=== PATIENT | female | born 1945 | race Caucasian/White ===

== ENCOUNTER 2023-05-25 14:32 | Emergency (ER) | payer MEDICARE ==
[2023-05-25 14:46] VITALS: TEMP 97
[2023-05-25] MEDS ORDERED: APRESOLINE 20 MG/ML INJ IV ONE (15:23)
[2023-05-25] MEDS ORDERED: APRESOLINE 20 MG/ML INJ ONE (15:31)
[2023-05-25 15:36] VITALS: RESP 16
[2023-05-25 15:47] LABS: Absolute Neutrophil Ct (ANC) 4.59 x10^3/uL (1.4-6.9); BASOPHIL % 0.6 % (0.0-0.4); Basophil (Absolute #) 0.04 x10^3/uL (0-0.4); Eosinophil % 0.2 % (0.00-5.0); Eosinophil (Absolute #) 0.01 x10^3/uL (0-0.5); Hematocrit 38.5 % (35-47); Hemoglobin 12.8 g/dL (12.0-16.0); IMMATURE GRAN # 0.02 x10^3u/L (0.00-0.03); IMMATURE GRAN % 0.3 % (0.00-0.4); Lymphocyte (Absolute #) 1.33 x10^3/uL (1.0-4.6); Lymphocytes % 20.1 % (24.0-44.0); Mean Cell Volume 90.6 fL (78-100); Mean Corpuscular Hemoglobin 30.1 pg (26-32); Mean Corpuscular Hgb Concent. 33.2 g/dL (32-36); Mean Platelet Volume 10.1 fL (7.5-11.0); Monocyte (Absolute #) 0.62 x10^3/uL (0.0-1.3); Monocytes % 9.4 % (0.0-12.0); Neutrophil % 69.4 % (36.0-66.0); Platelet Count 216 x10^3/uL (150-450); Red Blood Count 4.25 x10^6/uL (4.1-5.4); Red Cell Distribution Width 12.8 % (11.5-14.0); White Blood Count 6.6 x10^3/uL (4.0-10.5)
[2023-05-25 15:55] LABS: Appearance Clear (Clear); Bacteria None Seen /HPF (None Seen); Bilirubin Negative (Negative); Blood Negative (Negative); Epithelial Cells None Seen /HPF (None Seen); Glucose, Urine Negative (Negative); Hyaline Casts NONE SEEN /LPF (0-2); Ketones Negative (Negative); Leukocyte Esterase Trace (Negative); Nitrite Negative (Negative); Ph 7.5 (4.6-8.0); Protein,Urine Dip Negative (Negative); RBC 0-2 /HPF (0-5); Urobilinogen 0.2 mg/dL (0.2); WBC 0-2 /HPF (0-5)
[2023-05-25 15:59] LABS: ADD URINE CULTURE? NO (NO)
[2023-05-25 16:11] LABS: ALBUMIN 3.7 g/dL (3.5-5.0); ANION GAP 10.5 MEQ/L (5-15); BILIRUBIN,TOTAL 0.4 mg/dL (0.2-1.3); Calcium 9.1 mg/dL (8.4-10.2); Creatinine 1 0.79 mg/dL (0.52-1.04); EST GLOMERULAR FILTRATION RATE 76.5 ML/MIN; Potassium 3.8 mmol/L (3.5-5.1); Total Protein 6.7 g/dL (6.3-8.2)
[2023-05-25 17:09] VITALS: O2SAT 98
[2023-05-25] MEDS ORDERED: ZOFRAN ODT 4 MG PO ONE (17:26)
--- NOTE | 2023-05-25 17:26 | ERPHSYRPT ---
- History of Present Illness Time Seen by Provider: 05/25/23 14:45 Source: patient Exam Limitations: no limitations Patient Subjective Stated Complaint: PT HERE FOR HYPERTENSION, SHE STATES SHE WENT TO SEE HER DR THIS WEEK AND HER B/P WAS HIGH AND SHE WAS TOLD TO INCREASE HER COREG. SHE STATES SHE IS NOW DIZZY. Triage Nursing Assessment: PT ALERT, WALKED IN, RESP EASY , SKIN W/D/P, ABD SOFT, NO EDEMA NOTED, Physician History: 78 years old female with history of hypertension, hypothyroidism presented in the ER with chief complaint of feeling dizzy and lightheaded since 11 AM today. Patient reports her blood pressure was staying in 150s and 160s last week when she had to doctor's appointment. She talked to her carpenter Dr. Ortega who recommended increasing dose of Coreg from 6.25-12.5. She took around 9 AM and after 2 hours she started to feel lightheaded. She denies any chest pain palpitations or shortness of breath. Denies blurry vision, numbness tingling or focal weakness. Patient reports she checked her blood pressure it was in 180s and 170s. Patient is very anxious. Over here blood pressure is in 190s. EKG showed sinus bradycardia with no acute ischemic changes. I have obtained chest x-ray which is negative for any acute cardiopulmonary findings. I have given her 10 of hydralazine and blood pressure improved in 160s. Her dizziness and lightheadedness is improved. Patient is able to ambulate in the ER without any limitations. Work-up showed normal white count, fairly unremarkable chemistries and negative troponins. Patient I believe is probably feeling lightheaded secondary to possible bradycardia. Her bradycardia is also improved and currently heart rate in the 70s. I do not think patient needs CT head and is more of a heart related/blood pressure related dizziness. Recommended continue with the same dose of Coreg 6.25 and may increase the dose of losartan from 50 to either 100 are 75 mg daily and will also give a prescription of clonidine 0.1 mg to take as needed if blood pressure is greater than 160s. Recommended follow-up with primary care/cardiology for reevaluation and 1 to 2 days and follow their instructions. Discussed signs symptoms of worsening needing return to ER which she seems understanding. Stable for discharge. Allergies/Adverse Reactions: No Known Drug Allergies Allergy (Unverified 05/25/23 14:43) Home Medications: Atorvastatin Calcium [Lipitor 20MG Tablet] 20 mg PO DAILY 05/25/23 [History] Carvedilol [Coreg ] 6.25 mg PO BID 05/25/23 [History] Levothyroxine Sodium 75 Mcg [Synthroid 75 Mcg] 75 mcg PO DAILY 05/25/23 [History] Losartan Potassium 50 mg [Cozaar 50 MG] 50 mg PO DAILY 05/25/23 [History] Omeprazole 20 mg PO DAILY 05/25/23 [History] Hx Tetanus, Diphtheria Vaccination/Date Given: No Hx Influenza Vaccination/Date Given: No Hx Pneumococcal Vaccination/Date Given: No Immunizations Up to Date: Yes Travel Risk - International Travel Have you traveled outside of the country in past 3 weeks: No - Coronavirus Screening Are you exhibiting any of the following symptoms?: No Close contact with a COVID-19 positive Pt in past 14-21 Days: No - Vaccine Status Have you recieved a Covid-19 vaccination: No - Review of Systems Constitutional: No Symptoms Eyes: No Symptoms Ears, Nose, & Throat: No Symptoms Respiratory: No Symptoms Cardiac: No Symptoms Abdominal/Gastrointestinal: Nausea Genitourinary Symptoms: No Symptoms Musculoskeletal: No Symptoms Skin: No Symptoms Neurological: Dizziness, No Headache Endocrine: No Symptoms Hematologic/Lymphatic: No Symptoms Immunological/Allergic: No Symptoms - Past Medical History Pertinent Past Medical History: Yes Cardiac History: High Cholesterol, Hypertension GI Medical History: Hernia - Past Surgical History Past Surgical History: Yes Gastrointestinal: Appendectomy, Cholecystectomy Female Surgical History: Tubal Ligation - Social History Smoking Status: Never smoker Exposure to second hand smoke: No Drug Use: none Patient Lives Alone: No - Nursing Vital Signs Nursing Vital Signs: Initial Vital Signs Temperature 97.0 F 05/25/23 14:46 Pulse Rate 59 L 05/25/23 14:46 Respiratory Rate 18 05/25/23 14:46 Blood Pressure 217/87 05/25/23 14:46 O2 Sat by Pulse Oximetry 98 05/25/23 14:46 Pain Scale Pain Intensity 0 - Physical Exam General Appearance: no apparent distress, alert, anxiety Eye Exam: PERRL/EOMI Ears, Nose, Throat Exam: normal ENT inspection, TMs normal, pharynx normal, moist mucous membranes Neck Exam: normal inspection, non-tender, supple, full range of motion Respiratory Exam: normal breath sounds, lungs clear Cardiovascular Exam: normal heart sounds, bradycardia Gastrointestinal/Abdomen Exam: soft, normal bowel sounds, No tenderness Back Exam: normal inspection, normal range of motion Extremity Exam: normal inspection, normal range of motion, pelvis stable Neurologic Exam: alert, oriented x 3, cooperative, central aisle cashier II-XII nml as tested, nml cerebellar function, nml station & gait, sensation nml, No normal mood/affect (Anxious) Skin Exam: normal color SpO2 Interpretation: normal SpO2: 98 O2 Delivery: Room Air - Course EKG Interpreted by Me: RATE, Sinus [place], NORMAL AXIS, NORMAL INTERVALS, NORMAL QRS Ordered Tests: Active Orders 24 hr Category Date Time Status Clinical Operations Consultant STAT Care 05/25/23 15:23 Completed EKG-ER Only STAT Care 05/25/23 15:23 Completed IV Insertion STAT Care 05/25/23 15:23 Completed Pulse Oximetry (ED) STAT Care 05/25/23 15:23 Completed Re-Check Vital Signs STAT Care 05/25/23 15:23 Completed CHEST 1 VIEW (PORTABLE) Stat Exams 05/25/23 15:23 Completed CBC W DIFF Stat Lab 05/25/23 15:45 Completed CMP Stat Lab 05/25/23 15:45 Completed NT PRO BNPII Stat Lab 05/25/23 15:45 Completed TROPONIN Q4H Lab 05/25/23 15:45 Completed UA W/RFX UR CULTURE Stat Lab 05/25/23 15:45 Completed Medication Summary Discontinued Medications Generic Name Dose Route Start Last Admin Trade Name Cammy PRN Reason Stop Dose Admin Hydralazine HCl 10 mg 05/25/23 15:23 05/25/23 15:32 Hydralazine Hcl 20 Mg/Ml Vial IV 05/25/23 15:24 10 mg STAT ONE Administration Hydralazine HCl Confirm 05/25/23 15:31 Hydralazine Hcl 20 Mg/Ml Vial Administered 05/25/23 15:32 Dose 20 mg .ROUTE .STK-MED ONE Ondansetron HCl 4 mg 05/25/23 17:26 05/25/23 17:28 Zofran 4 Mg/Udtablet Orally Disintegrating PO 05/25/23 17:27 4 mg STAT ONE Administration Ondansetron HCl Confirm 05/25/23 17:27 Zofran 4 Mg/Udtablet Orally Disintegrating Administered 05/25/23 17:28 Dose 4 mg .ROUTE .STK-MED ONE Lab/Rad Data: Laboratory Result Diagrams 05/25/23 15:45 05/25/23 15:45 Laboratory Results 05/25/23 05/25/23 05/25/23 Range/Units 15:45 15:45 15:45 WBC (4.0-10.5) x10^3/uL RBC (4.1-5.4) x10^6/uL Hgb (12.0-16.0) g/dL Hct (35-47) % MCV (78-100) fL MCH (26-32) pg MCHC (32-36) g/dL RDW (11.5-14.0) % Plt Count (150-450) x10^3/uL MPV (7.5-11.0) fL Gran % (36.0-66.0) % Immature Gran % (Auto) (0.00-0.4) % Nucleat RBC Rel Count (0.00-0.1) % Eos # (Auto) (0-0.5) x10^3/uL Immature Gran # (Auto) (0.00-0.03) x10^3u/L Absolute Lymphs (auto) (1.0-4.6) x10^3/uL Absolute Monos (auto) (0.0-1.3) x10^3/uL Absolute Nucleated RBC (0.00-0.01) x10^3u/L Lymphocytes % (24.0-44.0) % Monocytes % (0.0-12.0) % Eosinophils % (0.00-5.0) % Basophils % (0.0-0.4) % Absolute Granulocytes (1.4-6.9) x10^3/uL Basophils # (0-0.4) x10^3/uL Sodium 139 (137-145) mmol/L Potassium 3.8 (3.5-5.1) mmol/L Chloride 102 (98-107) mmol/L Carbon Dioxide 30 (22-30) mmol/L Anion Gap 10.5 (5-15) MEQ/L BUN 18 H (7-17) mg/dL Creatinine 0.79 (0.52-1.04) mg/dL Estimated GFR 76.5 ML/MIN Glucose 109 H (74-106) mg/dL Calcium 9.1 (8.4-10.2) mg/dL Total Bilirubin 0.40 (0.2-1.3) mg/dL AST 29 (14-36) U/L ALT 25 (0-35) U/L Alkaline Phosphatase 91 (38-126) U/L Troponin I < 0.012 (0.000-0.034) ng/mL NT-Pro-B Natriuret Pep 386 (<300) pg/mL Serum Total Protein 6.7 (6.3-8.2) g/dL Albumin 3.7 (3.5-5.0) g/dL Urine Color Yellow (Yellow) Urine Appearance Clear (Clear) Urine pH 7.5 (4.6-8.0) Ur Specific [place] 1.010 (1.005-1.030) Urine Protein Negative (Negative) Urine Glucose (UA) Negative (Negative) mg/dL Urine Ketones Negative (Negative) Urine Blood Negative (Negative) Urine Nitrite Negative (Negative) Urine Bilirubin Negative (Negative) Urine Urobilinogen 0.2 (0.2) mg/dL Ur Leukocyte Esterase Trace A (Negative) U Hyaline Cast (Auto) NONE SEEN (0-2) /LPF Urine Microscopic RBC 0-2 (0-5) /HPF Urine Microscopic WBC 0-2 (0-5) /HPF Ur Epithelial Cells None Seen (None Seen) /HPF Urine Bacteria None Seen (None Seen) /HPF Urine Culture Reflexed NO (NO) 05/25/23 Range/Units 15:45 WBC 6.6 (4.0-10.5) x10^3/uL RBC 4.25 (4.1-5.4) x10^6/uL Hgb 12.8 (12.0-16.0) g/dL Hct 38.5 (35-47) % MCV 90.6 (78-100) fL MCH 30.1 (26-32) pg MCHC 33.2 (32-36) g/dL RDW 12.8 (11.5-14.0) % Plt Count 216 (150-450) x10^3/uL MPV 10.1 (7.5-11.0) fL Gran % 69.4 H (36.0-66.0) % Immature Gran % (Auto) 0.3 (0.00-0.4) % Nucleat RBC Rel Count 0.0 (0.00-0.1) % Eos # (Auto) 0.01 (0-0.5) x10^3/uL Immature Gran # (Auto) 0.02 (0.00-0.03) x10^3u/L Absolute Lymphs (auto) 1.33 (1.0-4.6) x10^3/uL Absolute Monos (auto) 0.62 (0.0-1.3) x10^3/uL Absolute Nucleated RBC 0.00 (0.00-0.01) x10^3u/L Lymphocytes % 20.1 L (24.0-44.0) % Monocytes % 9.4 (0.0-12.0) % Eosinophils % 0.2 (0.00-5.0) % Basophils % 0.6 (0.0-0.4) % Absolute Granulocytes 4.59 (1.4-6.9) x10^3/uL Basophils # 0.04 (0-0.4) x10^3/uL Sodium (137-145) mmol/L Potassium (3.5-5.1) mmol/L Chloride (98-107) mmol/L Carbon Dioxide (22-30) mmol/L Anion Gap (5-15) MEQ/L BUN (7-17) mg/dL Creatinine (0.52-1.04) mg/dL Estimated GFR ML/MIN Glucose (74-106) mg/dL Calcium (8.4-10.2) mg/dL Total Bilirubin (0.2-1.3) mg/dL AST (14-36) U/L ALT (0-35) U/L Alkaline Phosphatase (38-126) U/L Troponin I (0.000-0.034) ng/mL NT-Pro-B Natriuret Pep (<300) pg/mL Serum Total Protein (6.3-8.2) g/dL Albumin (3.5-5.0) g/dL Urine Color (Yellow) Urine Appearance (Clear) Urine pH (4.6-8.0) Ur Specific [place] (1.005-1.030) Urine Protein (Negative) Urine Glucose (UA) (Negative) mg/dL Urine Ketones (Negative) Urine Blood (Negative) Urine Nitrite (Negative) Urine Bilirubin (Negative) Urine Urobilinogen (0.2) mg/dL Ur Leukocyte Esterase (Negative) U Hyaline Cast (Auto) (0-2) /LPF Urine Microscopic RBC (0-5) /HPF Urine Microscopic WBC (0-5) /HPF Ur Epithelial Cells (None Seen) /HPF Urine Bacteria (None Seen) /HPF Urine Culture Reflexed (NO) - Progress Progress: improved Progress Note: 05/25/23 17:27 78 years old female with history of hypertension, hypothyroidism presented in the ER with chief complaint of feeling dizzy and lightheaded since 11 AM today. Patient reports her blood pressure was staying in 150s and 160s last week when she had to doctor's appointment. She talked to her carpenter Dr. Ortega who recommended increasing dose of Coreg from 6.25-12.5. She took around 9 AM and after 2 hours she started to feel lightheaded. She denies any chest pain palpitations or shortness of breath. Denies blurry vision, numbness tingling or focal weakness. Patient reports she checked her blood pressure it was in 180s and 170s. Patient is very anxious. Over here blood pressure is in 190s. EKG showed sinus bradycardia with no acute ischemic changes. I have obtained chest x-ray which is negative for any acute cardiopulmonary findings reviewed by me, official report is pending. I have given her 10 of hydralazine and blood pressure improved in 160s. Her dizziness and lightheadedness is improved. Patient is able to ambulate in the ER without any limitations. Work-up showed normal white count, fairly unremarkable chemistries and negative troponins. Patient I believe is probably feeling lightheaded secondary to possible bradycardia. Her bradycardia is also improved and currently heart rate in the 70s. I do not think patient needs CT head and is more of a heart related/blood pressure related dizziness. Recommended continue with the same dose of Coreg 6.25 and may increase the dose of losartan from 50 to either 100 are 75 mg daily and will also give a prescription of clonidine 0.1 mg to take as needed if blood pressure is greater than 160s. Recommended follow-up with primary care/cardiology for reevaluation and 1 to 2 days and follow their instructions. Discussed signs symptoms of worsening needing return to ER which she seems understanding. Stable for discharge. 05/25/23 17:27 Counseled pt/family regarding: lab results, diagnosis, need for follow-up, rad results Medical Desision Making - Independent Historian Additional History obtained from: Relative/friend - Diagnostic Testing Diagnostic test were ordered, analyzed, and reviewed by me: Yes Radiological Interpretation: Interpreted by me, Reviewed by me - Risk of complications The pt has a mod risk of morbidity or mortality based on: Need for prescription drug management - Departure Clinical Impression: Uncontrolled hypertension Condition: Stable Critical Care Time: No Referrals: KAYDEN KEARNS MD [Primary Care Provider] - Follow up/PCP as directed (Saturday morning for reevaluation) Instructions: Malignant Hypertension (DC) Additional Instructions: Take low-salt diet. Regular exercise. Follow-up with primary care for reevaluation in 2 days. Take Coreg 6.25 mg daily as routine and may increase the dose of losartan from 50 mg to 75 or 100 mg daily. If still have high blood pressure, take clonidine 0.1 mg as needed for blood pressure greater than 160 systolic. Return to ER for having chest pain palpitations shortness of breath, feeling dizzy or lightheaded, persistent high blood pressure etc. Prescriptions: Clonidine HCl 0.1 mg [Clonidine 0.1 mg Tablet] 0.1 mg PO Q12H PRN PRN 10 Days #10 tablet PRN Reason: Hypertension
[2023-05-25] MEDS ORDERED: ZOFRAN ODT 4 MG ONE (17:27)
[2023-05-25 17:52] VITALS: BP 236/80; PULSE 71
--- NOTE | 2023-05-25 20:09 | XRAY ---
Indication: Hypertension. Dizziness. Comparison: October 22, 2006 Portable chest remains inflated and clear. Heart and mediastinal structures within normal limits. Bony thorax intact with osteopenia and mild degenerative changes. Impression: Continued nonacute chest with chronic bony findings.
== END 2023-05-25 18:01 | disposition home or self-care (01) ==
LOC: ED 14:32
DX: I10 Essential (primary) hypertension (principal); R42 Dizziness and giddiness; E78.5 Hyperlipidemia, unspecified; Z79.899 Other long term (current) drug therapy; Z28.310 Unvaccinated for COVID-19
CPT/HCPCS: 36000; 36415; 71045; 80053; 81001; 83880; 84484; 85025; 93005; 93041; 94760; 96374; 99284; J0360; Q0162

== ENCOUNTER 2023-08-23 23:17 | Emergency (ER) | payer MEDICARE ==
--- NOTE | 2023-08-23 23:20 | ERPHSYRPT ---
- History of Present Illness Time Seen by Provider: 08/23/23 23:20 Source: patient, family Exam Limitations: no limitations Physician History: This is a 78-year-old white female patient of Dr. Kearns who fell on Saturday hitting the left side of her head and initially complained of some left side neck pain and mild headache on the left side. Symptoms worsened over the week. This morning, when she woke up she had pain in both shoulders and both sides of her posterior neck. She did not lose consciousness. 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 She has never had this degree of pain in the past. Patient has a history of hypertension, hypothyroidism, hyperlipidemia and gastroesophageal reflux disease. Patient states she is never had hydrocodone or Percocet. However, she has had codeine which she cannot take. Timing/Duration: day(s) (4), worse Severity: moderate Modifying Factors: Improves With: movement (Worsens) Associated Symptoms: denies symptoms Allergies/Adverse Reactions: adhesive tape Allergy (Intermediate, Verified 08/23/23 23:56) Rash codeine Adverse Reaction (Intermediate, Verified 08/23/23 23:56) Vomiting Home Medications: Atorvastatin Calcium [Lipitor 20MG Tablet] 20 mg PO DAILY 05/25/23 [History] Carvedilol [Coreg ] 12.5 mg PO BID 05/25/23 [History] Levothyroxine Sodium 75 Mcg [Synthroid 75 Mcg] 75 mcg PO DAILY 05/25/23 [History] Losartan Potassium 50 mg [Cozaar 50 MG] 50 mg PO BID 05/25/23 [History] Omeprazole 20 mg PO BID 05/25/23 [History] Amlodipine Besylate 5 mg [Norvasc 5 mg] 5 mg PO DAILY 08/23/23 [History] Aspirin EC 81 mg [Ecotrin 81 mg] 81 mg PO DAILY 08/23/23 [History] Hx Tetanus, Diphtheria Vaccination/Date Given: No Hx Influenza Vaccination/Date Given: No Hx Pneumococcal Vaccination/Date Given: No Travel Risk - International Travel Have you traveled outside of the country in past 3 weeks: No - Coronavirus Screening Are you exhibiting any of the following symptoms?: No Close contact with a COVID-19 positive Pt in past 14-21 Days: No - Vaccine Status Have you recieved a Covid-19 vaccination: No - Review of Systems Constitutional: No Symptoms Eyes: No Symptoms Ears, Nose, & Throat: No Symptoms Respiratory: No Symptoms Cardiac: No Symptoms Abdominal/Gastrointestinal: No Symptoms Genitourinary Symptoms: No Symptoms Musculoskeletal: Neck Pain, Fall, Injury Skin: No Symptoms Neurological: Headache Psychological: No Symptoms Endocrine: No Symptoms Hematologic/Lymphatic: No Symptoms Immunological/Allergic: No Symptoms All Other Systems: Reviewed and Negative - Past Medical History Pertinent Past Medical History: Yes Cardiac History: High Cholesterol, Hypertension GI Medical History: Hernia - Past Surgical History Past Surgical History: Yes Gastrointestinal: Appendectomy, Cholecystectomy Female Surgical History: Tubal Ligation - Social History Smoking Status: Never smoker Exposure to second hand smoke: No Drug Use: none Patient Lives Alone: No - Nursing Vital Signs Nursing Vital Signs: Initial Vital Signs Temperature 97.8 F 08/23/23 23:25 Pulse Rate 67 08/23/23 23:25 Respiratory Rate 16 08/23/23 23:25 Blood Pressure 172/90 08/23/23 23:25 O2 Sat by Pulse Oximetry 97 08/23/23 23:25 Pain Scale Pain Intensity 8 - Physical Exam General Appearance: no apparent distress, alert, anxiety Eye Exam: PERRL/EOMI, eyes nml inspection Ears, Nose, Throat Exam: normal ENT inspection, moist mucous membranes Neck Exam: normal inspection, non-tender, supple, full range of motion Respiratory Exam: normal breath sounds, lungs clear, airway intact, No chest tenderness, No respiratory distress Cardiovascular Exam: regular rate/rhythm, normal heart sounds, normal peripheral pulses Gastrointestinal/Abdomen Exam: soft, normal bowel sounds, No tenderness Pelvic Exam: not done Rectal Exam: not done Back Exam: normal inspection, normal range of motion, No CVA tenderness, No vertebral tenderness Extremity Exam: normal inspection, normal range of motion, pelvis stable Neurologic Exam: alert, oriented x 3, cooperative, solderer dipper II-XII nml as tested, normal mood/affect, nml cerebellar function, nml station & gait, sensation nml Skin Exam: normal color, warm, dry Lymphatic Exam: No adenopathy SpO2 Interpretation: normal O2 Delivery: Room Air - Course Nursing assessment & vital signs reviewed: Yes Ordered Tests: Active Orders 24 hr Category Date Time Status CERVICAL SPINE WO CONTRAST [CT] Stat Exams 08/23/23 23:59 Completed HEAD WITHOUT CONTRAST [CT] Stat Exams 08/23/23 23:58 Completed Medication Summary Discontinued Medications Generic Name Dose Route Start Last Admin Trade Name Cammy PRN Reason Stop Dose Admin Methylprednisolone Sodium 0 mg 08/24/23 00:00 08/24/23 00:17 Succinate 125 mg/ Sterile IM 08/24/23 00:01 125 mg Water 2 ml STAT ONE Administration Methylprednisolone Sodium Succinate Confirm 08/24/23 00:02 Methylprednis Sod Succ 125 Mg/2 Ml Vial Administered 08/24/23 00:03 Dose 125 mg .ROUTE .STK-MED ONE Orphenadrine Citrate 60 mg 08/24/23 00:00 08/24/23 00:21 Orphenadrine Citrate 60 Mg/2 Ml Vial IM 08/24/23 00:01 60 mg STAT ONE Administration Orphenadrine Citrate Confirm 08/24/23 00:02 Orphenadrine Citrate 60 Mg/2 Ml Vial Administered 08/24/23 00:03 Dose 60 mg .ROUTE .STK-MED ONE Sterile Water Confirm 08/24/23 00:02 Water For Injection,Sterile 10 Ml Vial Administered 08/24/23 00:03 Dose 10 ml IJ .STK-MED ONE - Progress Progress: improved, pain not gone completely Progress Note: 08/24/23 00:03 This patient's medical issue is 1 of low complexity. The level complex in the workup performed is based on review of the patient's past medical history, review of the patient's medication list, review the patient's drug allergy list, history present illness and physical findings on examination. The workup in this patient includes CT scan of the cervical spine without contrast and CT scan of the head without contrast. Patient does not want any codeine based medication. We will provide her with an intramuscular injection of Solu-Medrol and Norflex. 08/24/23 01:[address] scans were interpreted by the radiologist and I reviewed the impression. CT scan of the head without contrast shows no acute intracranial abnormality. There is no cranial fractures. CT scan of cervical spine without contrast shows no fracture or subluxation. There is evidence of mild spasm. There is degenerative changes noted. There is cervical spondylosis C3-C4 down to C6-C7. There is variable degrees of disc protrusion and osteophytes present. MRI of the cervical spine is recommended as an outpatient if clinically indicated Counseled pt/family regarding: diagnosis, need for follow-up, rad results Medical Desision Making - Independent Historian Additional History obtained from: Family - Diagnostic Testing Diagnostic test were ordered, analyzed, and reviewed by me: Yes Radiological Interpretation: Reviewed by me, Teleradiologist Report - Risk of complications The pt has a mod risk of morbidity or mortality based on: Need for prescription drug management - Departure Departure Disposition: Home Clinical Impression: Neck pain Condition: Stable Critical Care Time: No Referrals: KAYDEN KEARNS MD [Primary Care Provider] - Follow up/PCP as directed Additional Instructions: Take your medications as prescribed. Call your primary care provider on 08/26/2023, to make arrangements for a follow-up appointment and for an outpatient MRI of the cervical spine if indicated. Prescriptions: Prednisone 10 mg [Deltasone 10 mg] 10 mg PO TID #12 tablet Orphenadrine Citrate 100 mg [Norflex 100 MG Tablet] 100 mg PO BID #10 tab
[2023-08-23 23:38] VITALS: RESP 16; TEMP 97.8
[2023-08-24] MEDS ORDERED: solu-MEDROL ONE (00:02)
[2023-08-24] MEDS ORDERED: Norflex 60 MG/2 ML ONE (00:02)
[2023-08-24] MEDS ORDERED: Sterile H2O 10 ml IJ ONE (00:02)
[2023-08-24] MEDS: solu-MEDROL 125 MG, Sterile H2O 10 ml 2 ML IM ONE (00:17)
[2023-08-24] MEDS: Norflex 60 MG/2 ML IM ONE (00:21)
--- NOTE | 2023-08-24 00:50 | XRAY ---
CLINICAL HISTORY: Fall injury TECHNIQUE: Thin axial CT of the cervical spine was performed with sagittal and coronal reconstructions without contrast administration. COMPARISON: None. FINDINGS: Straightening of the cervical curve, possibly due to myospasm. Minimal C3 over C4 anterolisthesis. No vertebral fractures or obvious dislocation noted. The vertebral bodies show no structural collapse or reduced height, intact posterior neural elements with no fractures. Degenerative changes of the atlanto-odontoid articulation. Cervical spondylodegenerative changes evident by marginal osteophytic lipping and multilevel subchondral sclerosis of the examined vertebral end plates with variable degrees of reduced disc spaces and intra-discal calcifications. Focal anterior longitudinal ligament/annular calcification opposite C5/6 level. Left C3-C4 and bilateral C4-C5 down to C6-C7 degenerative unco-vertebral arthropathy with osteophytes formation seen encroaching upon the corresponding neural exit foramina. Bilateral C2-C3 down to C6-C7 variable degrees of degenerative facet arthropathy. C3-C4 down to C6-C7 variable degrees of posterior disc protrusions with posterior osteophytes formation & annular calcifications opposite C4-C5, C5-C6 and C6-C7 levels inducing moderate to severe inducing central spinal canal and neural exit foramina compromise. Bilateral bony cervical ribs, larger on the left side. No retro paraspinal soft tissue masses. Scanned lung apex shows bilateral apical reticulofibrotic scarring. IMPRESSION: 1. Straightening of the cervical curve, possibly due to myospasm. 2. Minimal C3 over C4 anterolisthesis. 3. No vertebral fracture or dislocation noted. 4. Cervical spondylosis with C3-C4 down to C6-C7 variable degrees of posterior disc protrusions/osteophytes along with multilevel uncovertebral and facet arthropathy inducing moderate to severe spinal canal and neural exit pathways compromise. Better assessment by MRI is recommended if clinically advise. Electronically Signed by: Katie Palmer MD. (08/24/2023 00:46:15 EST)
--- NOTE | 2023-08-24 00:52 | XRAY ---
CLINICAL HISTORY: fall, hit head TECHNIQUE: Axial non-contrast CT scan of the brain was performed from the skull base to the high parietal region. Coronal and sagittal reconstructions were also obtained. COMPARISON: None. FINDINGS: No definite calvarium fractures. No intracerebral or extra axial hematoma. The visualized brain parenchyma shows a normal appearance. No focal parenchymal abnormalities are demonstrated. Neff-white matter differentiation is maintained. No midline shifts or deformity. Normal size and configuration of the cerebral ventricles. Normal CT appearance of the posterior fossa structures namely the cerebellar hemispheres, brainstem and cerebellar peduncles. The IACs are unremarkable. The cerebello-pontine angles are clear. The pituitary gland, the pineal gland, the optic chiasm are unremarkable. The osseous structures in the skull base are unremarkable. Scanned paranasal sinuses are clear. Unilateral right thalamic coarse calcification is noted, likely related to old insult. IMPRESSION: 1. No definite calvarium fractures. No intracerebral or extra axial hematoma. 2. Unilateral right thalamic coarse calcification is noted, likely related to old insult. Electronically Signed by: Katie Palmer MD. (08/24/2023 00:47:58 EST)
[2023-08-24] MEDS ORDERED: ZOFRAN ODT 4 MG ONE (01:47)
[2023-08-24] MEDS ORDERED: MORPHINE SULFATE 2 MG INJ ONE (01:48)
[2023-08-24] MEDS: MORPHINE SULFATE 2 MG INJ IM ONE (01:50)
[2023-08-24] MEDS: ZOFRAN ODT 4 MG PO ONE (01:50)
[2023-08-24 02:10] VITALS: BP 157/57; PULSE 73; O2SAT 93
== END 2023-08-24 02:25 | disposition home or self-care (01) ==
LOC: ED 23:17
DX: M54.2 Cervicalgia (principal); M25.511 Pain in right shoulder; M25.512 Pain in left shoulder; I10 Essential (primary) hypertension; E78.5 Hyperlipidemia, unspecified; Z79.52 Long term (current) use of systemic steroids; Z79.899 Other long term (current) drug therapy; Z28.310 Unvaccinated for COVID-19
CPT/HCPCS: 70450; 72125; 96372; 99284; J2270; J2360; J2930; Q0162